=== PATIENT | female | born 1965 | race African-American/Black ===

== ENCOUNTER 2019-05-08 09:39 | Emergency (ER) | payer OTHER ==
[2019-05-08 09:46] VITALS: BP 127/74; PULSE 91; TEMP 98.6; BMI 38.5
[2019-05-08] MEDS ORDERED: IBUPROFEN 100 MG/5 ML UNIT DOSE CUPS PO ONE (10:51)
[2019-05-08] MEDS ORDERED: IBUPROFEN 100 MG/5 ML UNIT DOSE CUPS ONE (10:56)
--- NOTE | 2019-05-08 10:56 | PDOC ---
History of Present Illness - General Chief Complaint: Sore Throat Stated Complaint: EAR INFECTION Time Seen by Provider: 05/08/19 10:23 History Source: Patient Exam Limitations: No Limitations - History of Present Illness Initial Comments: 05/08/19 10:52 atvicky is here with complaints of 2 days acute onset of swelling and pain to throat. States is difficult to swallow. round some children last weekend and is uncertain as to their health status. Has taken ibuprofen with minimal resolved. States had fevers and chills last night, no cough or earache pain. Timing/Duration: unsure, 24 hours Severity: mild, moderate Associated Symptoms: reports: fever/chills, loss of appetite, malaise Past History - Travel Traveled outside of the country in the last 30 days: No Close contact w/someone who was outside of country & ill: No - Past Medical History Allergies/Adverse Reactions: Allergies Allergy/AdvReac Type Severity Reaction Status Date / Time Sulfa (Sulfonamide Allergy Severe Hives Verified 05/08/19 09:42 Antibiotics) Home Medications: Ambulatory Orders Azithromycin [Zithromax -] 250 mg PO UTDICT #6 tab 05/08/19 Naproxen [Naprosyn -] 500 mg PO BID #30 tablet 05/08/19 COPD: No Other medical history: siatica pain - Immunization History Immunization Up to Date: Yes - Suicide/Smoking/Psychosocial Hx Smoking History: Current every day smoker Number of Cigarettes Smoked Daily: 20 Information on smoking cessation initiated: No Hx Alcohol Use: No Drug/Substance Use Hx: Yes ([facility]) Review of Systems - Review of Systems Able to Perform ROS?: Yes Is the patient limited Welsh proficient: Yes Constitutional: Yes: Symptoms Reported, See HPI, Chills, Fever, Malaise HEENTM: Yes: Symptoms Reported, See HPI, Throat Pain, Throat Swelling, Difficulty Swallowing Respiratory: Yes: See HPI. No: Symptoms reported, Cough All Other Systems: Reviewed and Negative *Physical Exam - Vital Signs Last Vital Signs Temp Pulse Resp BP Pulse Ox 98.6 F 91 H 18 127/74 97 05/08/19 09:43 05/08/19 09:43 05/08/19 09:43 05/08/19 09:43 05/08/19 09:43 - Physical Exam General Appearance: Yes: Nourished, Appropriately Dressed HEENT: positive: TIFFANY, TMs Normal, Rhinorrhea, Sinus Tenderness. 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 We'll treat with azithromycin *DC/Admit/Observation/Transfer Diagnosis at time of Disposition: Pharyngitis Qualifiers: Pharyngitis/tonsillitis etiology: other specified organisms Qualified Code(s): J02.8 - Acute pharyngitis due to other specified organisms - Discharge Dispostion Disposition: HOME Condition at time of disposition: Stable Decision to Admit order: No - Referrals Referrals: Jocy Strange MD [Primary Care Provider] - - Patient Instructions Printed Discharge Instructions: DI for Pharyngitis/Tonsillopharyngitis -- Adult Additional Instructions: Rest, drink lots of fluids: Teas, water, soups Eat cold things: Ice cream, ice pops, ice chips Saltwater gargles Steamy showers/seem to face break up mucus Avoid contact with others until fevers and pain resolved Lots of handwashing and good hygiene, this is contagious zithromycin as directed for antibiotic therapy Tylenol or Motrin for fever and pain Followup with private physician in one to 2 days as needed if not improving Return to emergency department for worsened symptoms, fevers, dehydration - Post Discharge Activity Forms/Work/School Notes: Back to Work
== END 2019-05-08 11:00 | disposition home or self-care (01) ==
LOC: JERFT 09:39
DX: J02.9 Acute pharyngitis, unspecified (principal); Z88.2 Allergy status to sulfonamides
CPT/HCPCS: 99281-25

== ENCOUNTER 2019-09-11 13:35 | Emergency (ER) | payer OTHER ==
--- NOTE | 2019-09-11 13:47 | PDOC ---
Rapid Medical Evaluation Time Seen by Provider: 09/11/19 13:45 Medical Evaluation: Allergies Allergy/AdvReac Type Severity Reaction Status Date / Time Sulfa (Sulfonamide Allergy Severe Hives Verified 05/08/19 09:42 Antibiotics) 09/11/19 13:46 HPI: atraumatic R hand pain x2 days PE: moved R thumb at MCPJ ORDERS: Nothing Discharge Disposition - Diagnosis Gout attack - Referrals - Patient Instructions - Post Discharge Activity
[2019-09-11 13:49] VITALS: BP 137/50; PULSE 77; TEMP 98.2; BMI 38.2
--- NOTE | 2019-09-11 15:42 | PDOC ---
History of Present Illness - General Chief Complaint: Pain Stated Complaint: RT HAND PAIN Time Seen by Provider: 09/11/19 13:45 History Source: Patient - History of Present Illness Initial Comments: 09/11/19 17:08 Chief complaint: Thumb pain Patient 54-year-old female, healthy female who states that she has severe thumb pain, did not injure the thumb. Patient relates that she has prior injury as a child to the thumb which left her with neuro and motor deficits. Patient is unable to flex the finger on her own normally. No fever. GENERAL/CONSTITUTIONAL: No fever, weakness. dizziness HEAD, EYES, EARS, NOSE AND THROAT: No change in vision. No ear pain or discharge. No sore throat. CARDIOVASCULAR: No chest pain RESPIRATORY: No shortness of breath or cough GASTROINTESTINAL: No pain, nausea, vomiting, diarrhea or constipation GENITOURINARY: No dysuria MUSCULOSKELETAL: No neck or back pain, + left thumb SKIN: No rash NEUROLOGIC: No headache, vertigo, loss of consciousness, or loss of sensation. GENERAL: The patient is awake, alert, and fully oriented, in no acute distress. HEAD: Normal with no signs of trauma. EYES: Pupils equal, round and reactive to light, sclera anicteric, conjunctiva clear. ENT: pharynx: no erythema, no exudate, uvula midline NECK: supple CHEST: clear, nontender, rr ABD: soft, nontender BACK: no tenderness or signs of injury EXTREMITIES: Left thumb with limited range of motion, chronic, minimal swelling to the MCP, tenderness to the area extending upwards, no signs of tenosynovitis. Rest of extremities, normal range of motion, no edema. NEUROLOGICAL: Normal speech, normal gait. SKIN: Warm, Dry Past History - Past Medical History Allergies/Adverse Reactions: Allergies Allergy/AdvReac Type Severity Reaction Status Date / Time Sulfa (Sulfonamide Allergy Severe Hives Verified 09/11/19 13:47 Antibiotics) Home Medications: Ambulatory Orders Azithromycin [Zithromax -] 250 mg PO UTDICT #6 tab 05/08/19 Naproxen [Naprosyn -] 500 mg PO BID #30 tablet 05/08/19 Methylprednisolone [Medrol Dose Brandyn] 4 mg PO ASDIR #21 tablet 09/11/19 Naproxen [Naprosyn] 500 mg PO BID #14 tablet 09/11/19 Oxycodone HCl/Acetaminophen [Percocet 5-325 mg Tablet] 1 - 2 tab PO Q4H PRN #24 tablet MDD 12 09/11/19 COPD: No - Immunization History Immunization Up to Date: Yes - Psycho Social/Smoking Cessation Hx Smoking History: Current some day smoker Have you smoked in the past 12 months: No Number of Cigarettes Smoked Daily: 5 Information on smoking cessation initiated: No Hx Alcohol Use: No Drug/Substance Use Hx: No *Physical Exam - Vital Signs Last Vital Signs Temp Pulse Resp BP Pulse Ox 98.2 F 77 16 137/50 L 100 09/11/19 13:47 09/11/19 13:47 09/11/19 13:47 09/11/19 13:47 09/11/19 13:47 Procedures - Splinting Splint Location: Right: Finger (thumb) Pre-Proc Neuro Vasc Exam: normal Hand-Made Type: orthoglass Splint Type: Yes: Thumb Spica Post-Proc Neuro Vasc Exam: normal Jonathan Bandage: 2" Sling: Yes Medical Decision Making - Medical Decision Making 09/11/19 17:11 54-year-old female with exquisite thumb pain and tenderness, no signs of infection, at baseline has neuro and motor deficits. Patient will get x-ray to rule out any occult fracture or issue, patient will get Motrin. X-ray shows no fracture or obvious acute issue, patient is still in pain, will give Percocet. Likely gout/inflammation, will send home on Medrol Dosepak, Naprosyn and Percocet. Patient will follow up with Dr. Ross. We will splint the thumb for comfort Patient feels much better after medication the splint and sling Discussed issues, findings, results, applicable medications and treatments and follow-up. All these were understood and all questions were answered 09/11/19 18:39 Discharge - Discharge Information Problems reviewed: Yes Clinical Impression/Diagnosis: Gout attack Qualifiers: Gout site: unspecified site Gout etiology: unspecified cause Qualified Code(s) : M10.9 - Gout, unspecified Condition: Stable Disposition: HOME - Admission No - Additional Discharge Information Prescriptions: Methylprednisolone [Medrol Dose Brandyn] 4 mg PO ASDIR #21 tablet Naproxen [Naprosyn] 500 mg PO BID #14 tablet Oxycodone HCl/Acetaminophen [Percocet 5-325 mg Tablet] 1 - 2 tab PO Q4H PRN #24 tablet MDD 12 PRN Reason: Pain - Follow up/Referral Referrals: Jocy Strange MD [Primary Care Provider] - Kerwin Ross MD [Staff Physician] - - Patient Discharge Instructions Additional Instructions: Wear the splint, elevate Take the Medrol Dosepak Take the Naprosyn 1 tablet every 12 hours for pain, is still in pain you can also take the Percocet 1 to 2 tablets every 4-6 hours. Return to the ER if fever, area becomes much more red or swollen or uncontrolled pain. Call Dr. Ross in the morning for close follow-up this week - Post Discharge Activity
[2019-09-11] MEDS ORDERED: IBUPROFEN 600 MG TABLET (FP) PO ONE (15:43)
== END 2019-09-11 17:42 | disposition home or self-care (01) ==
LOC: JERFT 13:35
PROC: 2W3GX1Z Immobilization of Right Thumb using Splint (ICD-10-PCS; principal; 2019-09-11)
DX: M10.9 Gout, unspecified (principal); Z88.2 Allergy status to sulfonamides
CPT/HCPCS: 29130; 73140-TC-RT-FY; 99281-25

== ENCOUNTER 2021-08-29 11:43 | Emergency (ER) | payer BC ==
[2021-08-29 11:52] VITALS: BP 155/74; PULSE 68; TEMP 97.4; BMI 41.9
[2021-08-29] MEDS ORDERED: KETOROLAC TROMETHAMINE 30 MG/1 ML VIAL IM ONE (12:24)
[2021-08-29] MEDS ORDERED: KETOROLAC TROMETHAMINE 30 MG/1 ML VIAL ONE (12:26)
== END 2021-08-29 13:37 | disposition home or self-care (01) ==
LOC: JERFT 11:43
PROC: 3E023GC Introduction of Other Therapeutic Substance into Muscle, Percutaneous Approach (ICD-10-PCS; principal; 2021-08-29)
DX: S49.92XA Unspecified injury of left shoulder and upper arm, initial encounter (principal); W19.XXXA Unspecified fall, initial encounter
CPT/HCPCS: 73030-TC-LT-FY; 73060-TC-LT-FY; 99284-25

== ENCOUNTER 2021-10-19 12:40 | Emergency (ER) | payer BC ==
[2021-10-19 12:45] VITALS: BP 116/74; PULSE 74; TEMP 97; BMI 43.2
[2021-10-19] MEDS ORDERED: METHOCARBAMOL 500 MG TABLET PO ONE (13:26)
[2021-10-19] MEDS ORDERED: KETOROLAC TROMETHAMINE 30 MG/1 ML VIAL IM ONE (13:26)
[2021-10-19] MEDS ORDERED: KETOROLAC TROMETHAMINE 30 MG/1 ML VIAL ONE (13:36)
[2021-10-19] MEDS ORDERED: METHOCARBAMOL 500 MG TABLET ONE (13:36)
== END 2021-10-19 14:23 | disposition home or self-care (01) ==
LOC: JERFT 12:40 → JER 12:40 → JERFT 14:23
PROC: 3E023GC Introduction of Other Therapeutic Substance into Muscle, Percutaneous Approach (ICD-10-PCS; principal; 2021-10-19)
DX: M25.512 Pain in left shoulder (principal)
CPT/HCPCS: 73030-TC-LT-FY; 73060-TC-LT-FY; 99284-25

== ENCOUNTER 2024-05-24 04:36 | Day surgery (SDC) | payer OTHER ==
[2024-05-22 14:23] VITALS: BMI 40.0
[2024-05-24] MEDS ORDERED: ONDANSETRON 4 MG/2 ML VIAL IVPUSH PRN (14:26)
[2024-05-24] MEDS ORDERED: oxyCODONE HCL 5 MG TABLET PO PRN (14:26)
[2024-05-24] MEDS ORDERED: PROPOFOL 20 ML ONE (14:53)
[2024-05-24] MEDS ORDERED: SEVOFLURANE 250 ML BTL ONE (14:53)
[2024-05-24] MEDS ORDERED: MIDAZOLAM HCL 2 MG/2 ML SINGLE DOSE VIAL ONE (14:53)
[2024-05-24] MEDS ORDERED: LIDOCAINE HCL/PF 2% SDV 5ML VIAL ONE (14:54)
[2024-05-24] MEDS ORDERED: DEXAMETHASONE SOD PHOSPHATE 4 MG/1 ML VIAL ONE (14:54)
[2024-05-24] MEDS ORDERED: KETOROLAC TROMETHAMINE 30 MG/1 ML VIAL ONE (14:54)
[2024-05-24] MEDS ORDERED: ONDANSETRON 4 MG/2 ML VIAL ONE (14:54)
[2024-05-24] MEDS ORDERED: ceFAZolin SODIUM 1 GM VIAL ONE (15:08)
[2024-05-24] MEDS: ceFAZolin SODIUM 1 GM VIAL IVPB ONE (15:15)
[2024-05-24] MEDS ORDERED: ACETAMINOPHEN INJECTION 100 ML IVPB ONE (16:39)
[2024-05-24] MEDS: ACETAMINOPHEN 1000 MG/100 ML BAG IVPB PRN (16:41)
[2024-05-24] MEDS: LACTATED RINGERS SOLUTION 1,000 ML IV SCH (17:12)
[2024-05-24 17:44] VITALS: BP 124/72; PULSE 62; RESP 16; TEMP 97.6
== END 2024-05-24 18:23 | disposition home or self-care (01) ==
LOC: JASU-SURG 04:36
PROVIDERS: ATTEND Obstetrics & Gynecology
PROC: 0UBC8ZZ Excision of Cervix, Via Natural or Artificial Opening Endoscopic (ICD-10-PCS; principal; 2024-05-24 14:00)
DX: N95.0 Postmenopausal bleeding (principal); R93.89 Abnormal findings on diagnostic imaging of other specified body structures; N84.0 Polyp of corpus uteri; N87.9 Dysplasia of cervix uteri, unspecified
CPT/HCPCS: 82962; 88305-TC; 94760; J0131

== ENCOUNTER 2024-12-31 06:12 | Emergency (ER) | payer OTHER ==
[2024-12-31 06:22] VITALS: TEMP 97.7; BMI 38.7
[2024-12-31] MEDS ORDERED: ALBUTEROL SO4 0.083% IH SOL 2.5 MG/3 ML VIAL.NEB. NEB ONE (07:57)
[2024-12-31] MEDS: ALBUTEROL SO4 0.083% IH SOL 2.5 MG/3 ML VIAL.NEB. NEB ONE (07:58)
[2024-12-31] MEDS ORDERED: KETOROLAC TROMETHAMINE 15 MG/ML VIAL ONE (08:07)
[2024-12-31] MEDS: KETOROLAC TROMETHAMINE 15 MG/ML VIAL IVPUSH ONE (08:10)
[2024-12-31 08:26] LABS: BASO % 0.2 % (0-2.0); EOS % 1.8 % (0-4.5); HEMATOCRIT 40.2 % (32.4-45.2); HEMOGLOBIN 13.4 GM/dL (10.7-15.3); LYMPH % 38.3 % (8-40); MCH 29.2 pg (25.7-33.7); MCHC 33.3 g/dl (32.0-36.0); MEAN CELL VOLUME 87.7 fl (80-96); MEAN PLT VOLUME 6.6 fl (7.5-11.1); MONO % 6.7 % (3.8-10.2); PLATELET COUNT 284 10^3/uL (134-434); RBC 4.59 M/mm3 (3.60-5.2); RDW 15.6 % (11.6-15.6); WHITE BLOOD COUNT 7.1 K/mm3 (4.0-10.0)
[2024-12-31 08:51] LABS: ALBUMIN 3.3 g/dl (3.4-5.0); BLOOD UREA NITROGEN 10.2 mg/dL (7-18); CALCIUM 8.5 mg/dL (8.5-10.1); CREATININE 0.8 mg/dL (0.55-1.3); POTASSIUM 4.2 mmol/L (3.5-5.1)
[2024-12-31 08:52] LABS: BILIRUBIN,TOTAL 0.3 mg/dL (0.2-1); TOT PROT 7.3 g/dl (6.4-8.2)
[2024-12-31] MEDS ORDERED: ACETAMINOPHEN INJECTION 100 ML ONE (09:49)
[2024-12-31] MEDS: SODIUM CHLORIDE 1,000 ML IV STA (09:52)
[2024-12-31] MEDS: ACETAMINOPHEN 1000 MG/100 ML BAG IVPB ONE (09:52)
[2024-12-31 10:01] VITALS: BP 130/71; PULSE 62; RESP 18
[2024-12-31] MEDS: ALBUTEROL SO4 HFA INHALER IH ONE (10:26)
[2024-12-31] MEDS ORDERED: ALBUTEROL SO4 HFA INHALER IH ONE (10:27)
[2024-12-31 11:19] LABS: HIV INTERPRETATION NEGATIVE (NEGATIVE)
== END 2024-12-31 12:48 | disposition home or self-care (01) ==
LOC: JER 06:12
PROC: 3E033NZ Introduction of Analgesics, Hypnotics, Sedatives into Peripheral Vein, Percutaneous Approach (ICD-10-PCS; principal; 2024-12-31)
PROC: 3E0333Z Introduction of Anti-inflammatory into Peripheral Vein, Percutaneous Approach (ICD-10-PCS; 2024-12-31)
PROC: 3E0337Z Introduction of Electrolytic and Water Balance Substance into Peripheral Vein, Percutaneous Approach (ICD-10-PCS; 2024-12-31)
PROC: 3E0F7GC Introduction of Other Therapeutic Substance into Respiratory Tract, Via Natural or Artificial Opening (ICD-10-PCS; 2024-12-31)
DX: R05.9 Cough, unspecified (principal); R07.9 Chest pain, unspecified; M54.6 Pain in thoracic spine; R06.02 Shortness of breath; M79.89 Other specified soft tissue disorders; Z20.822 Contact with and (suspected) exposure to COVID-19
CPT/HCPCS: 0241U-QW; 36415; 71045-TC-FY; 80053; 84484; 85025; 86803; 87389; 93005; 93010; 94640; 96361; 96374; 96375; 99285-25; J0131